=== PATIENT | male | born 1980 | race Caucasian/White ===

== ENCOUNTER 2020-07-16 07:05 | Emergency (ER) | payer SELFPAY ==
[~2020-07-16] VITALS: Ht 185.4 cm; Wt 102.0 kg
--- NOTE | 2020-07-16 07:23 | NUR ---
PATIENT WHEELED BACK FROM TRIAGE WITH CHIEF C/O CHEST PAIN AND SYNCOPAL EPISODE. PER PATIENT HE "FELT WEIRD" AND WHEN HE STOOD UP PATIENT PASSED OUT, AND WOKE UP ON THE FLOOR. PATIENT ALSO REPORTS CHEST PAIN RIGHT BEFORE PASSING OUT, WHICH HAS NOT SUBSIDED SINCE INCIDENT. PATIENT STATES HE "SMOKED A LITTLE BIT OF METH FOR THE FIRST TIME YESTERDAY EVENING." PATIENT REPORTS TINGLING IN HIS TOES. NADN, PATIENT TACHYCARDIC AT 110, BP 152/122, OTHER VSS, ACCOMPANIED BY SISTER, CALL LIGHT WITHIN REACH.
--- NOTE | 2020-07-16 07:25 | NUR ---
ERPA AT BEDSIDE FOR EVALUATION.
[2020-07-16] MEDS ORDERED: ASPIRIN 81 MG TABLET CHEW PO ONE (07:30)
[2020-07-16] MEDS ORDERED: ASPIRIN 81 MG TABLET CHEW ONE (07:32)
--- NOTE | 2020-07-16 07:34 | NUR ---
PATIENT'S SISTER NIKHIL PHONE NUMBER [phone].
[2020-07-16 07:50] LABS: BASOPHILS % (AUTO) 1 % (0-1); EOSINOPHILS % (AUTO) 1 % (1-7); LYMPHOCYTES % (AUTO) 15 % (22-44); MEAN CORPUSCULAR HEMOGLOBIN 31.5 pg (27.5-34.5); MEAN PLATELET VOLUME 7.7 fL (7.4-10.4); MONOCYTES % (AUTO) 6 % (2-9); NEUTROPHILS % (AUTO) 78 % (42-75); PLATELET COUNT 252 x10^3/uL (130-400); RED CELL DISTRIBUTION WIDTH 13.7 % (9.4-14.8)
[2020-07-16 07:54] LABS: MD NO
[2020-07-16 07:59] LABS: ALANINE AMINOTRANSFERASE 29 U/L (12-78); ALBUMIN 4.2 g/dL (3.4-5.0); ANION GAP 5 mmol/L (5-15); CALCIUM 9.2 mg/dL (8.5-10.1); CHLORIDE 106 mmol/L (98-107); CREATININE 1.05 mg/dL (0.7-1.3)
--- NOTE | 2020-07-16 08:02 | NUR ---
PATIENT LAYING IN NANCY ROSARIO, HR 105-110, OTHER VSS, PATIENT REPORTS CHEST PAIN RELIEVED, CALL LIGHT WITHIN REACH.
[2020-07-16 08:03] LABS: ALKALINE PHOSPHATASE 113 U/L (45-117); BILIRUBIN,TOTAL 0.5 mg/dL (0.2-1.0); TOTAL PROTEIN 7.9 g/dL (6.4-8.2); TROPONIN I < 0.015 ng/mL (0.000-0.045)
[2020-07-16] MEDS ORDERED: KETOROLAC 30 MG/1 ML ONE (08:40)
[2020-07-16 08:42] VITALS: BP 160/96
--- NOTE | 2020-07-16 09:04 | NUR ---
Patient given discharge instructions and they have confirmed that they understand the instructions. Patient stable and ambulatory with steady gait from ED accompanied by sister who is driving.
[2020-07-16] MEDS ORDERED: KETOROLAC 30 MG/1 ML IM ONE (09:30)
== END 2020-07-16 09:05 | disposition home or self-care (01) ==
LOC: ED 08:12
DX: R07.89 Other chest pain (principal); F15.10 Other stimulant abuse, uncomplicated; F17.210 Nicotine dependence, cigarettes, uncomplicated
CPT/HCPCS: 36415; 71045; 80053; 84484; 85025; 93005; 96372; 99285; 99406; J1885